=== PATIENT | female | born 1950 | race Caucasian/White ===

== ENCOUNTER 2019-03-01 05:18 | Day surgery (SDC) ==
--- NOTE | 2019-02-22 09:36 | EKG Report ---
Test Performed on : 02/22/2019 08:50:29 AM Test Reason : pat Blood Pressure : / mmHG Vent. Rate : 060 BPM Atrial Rate : 060 BPM P-R Int : 158 ms QRS Dur : 104 ms QT Int : 462 ms P-R-T Axes : 064 015 061 degrees QTc Int : 462 ms Normal sinus rhythm. Normal ECG No previous ECGs available Confirmed by Agustin Palma MD ([id number]) on 02/23/2019 6:23:30 PM
[2019-02-22 10:05] LABS: BASO# 0.04 X1000 (0.0-0.2); BASO% 0.9 % (0.0-0.8); EOS# 0.28 X1000 (0.0-0.7); EOS% 6.5 % (0.0-10.0); HEMATOCRIT 38.6 % (37.0-47.0); HEMOGLOBIN 13.1 g/dL (12.0-16.0); LYMPH# 1.68 X1000 (1.2-3.4); MCH 30.3 PG (27-31); MCHC 33.9 g/dL (33-37); MCV 89.4 FL (81-99); MONO# 0.65 X1000 (0.11-0.59); MONO% 15.1 % (1.7-9.3); MPV 10.7 FL (7.4-10.4); NEUT# 1.66 X1000 (1.4-6.5); NEUT% 38.5 % (42.2-75.2); PLT 335 X1000 (130-400); RBC 4.32 XMIL (4.2-5.4); WBC 4.31 X1000 (4.8-10.8)
[2019-02-22 10:45] LABS: AGAP 10; BUN 14 mg/dL (8-22); CALCIUM 9.4 mg/dL (8.8-10.2); CHLORIDE 103 mmol/L (98-107); COSMO 281; CREATININE 0.7 mg/dL (0.5-0.9); ESTIMATED GFR > 60; GLUCOSE 84 mg/dL (70-104); POTASSIUM 4.1 mmol/L (3.5-5.1); SODIUM 141 mmol/L (136-145); TCO2 28 mmol/L (25-35)
--- NOTE | 2019-02-28 12:31 | HISTORY AND PHYSICAL ---
HISTORY: The patient is a 68-year-old female who has recently moved to the area who has been having increasing problems with symptomatic pelvic organ prolapse. Her prolapse is so significant that it is approximately 4 cm extra corporeal, and she is now not having any incontinence because of the reversed kinking of the urethra. She is having urinary frequency and urgency. She is not having to digitate at this point, and she is not sexually active because of her 's inability. She is very young-appearing and very active, and is not wanting to proceed with pessary management or with an obliterative procedure. She is strongly desiring to proceed with sacral colpopexy and mid urethral sling. The risks and benefits of this were explained at length. She understands, and is wishing to proceed. PAST MEDICAL HISTORY: Positive for bipolar disorder. PAST SURGICAL HISTORY: Positive for vaginal hysterectomy, open appendectomy, right shoulder surgery, and dental implants. She is noted to be a para 3-0-0-3 with 2 vaginal deliveries and 1 forceps delivery. CURRENT MEDICATIONS: 1. Lamictal 200. 2. Cymbalta 30. 3. Alprazolam 1 mg. ALLERGIES: None. FAMILY HISTORY: Noncontributory. SOCIAL HISTORY: Positive for tobacco but stopped 30 years ago. However, she was smoking 1 pack per day. REVIEW OF SYSTEMS: Negative except as noted above. PHYSICAL EXAMINATION: GENERAL: BMI is 20. HEENT: Normocephalic, atraumatic. PERRLA. EOMI. No thyromegaly. CV: Regular rate and rhythm without murmur, gallop, or rub. PULMONARY: Clear. ABDOMEN: Soft. No hepatosplenomegaly. : Pop Q stage IV prolapse with primarily anterior and apical defects. The leading edge is AB, + 5, +6. AA is 0. GH is 5. PB is 4. She has bilateral apical sidewall detachment noted as well. NEUROLOGIC: Afocal. EXTREMITIES: Without clubbing, cyanosis, or edema. ASSESSMENT AND PLAN: Patient with advanced stage prolapse and probable occult incontinence. She has reversed kinking of the urethra that is allowing her to remain continent at this time, but is having the urgency issues. She was counseled at length regarding surgical intervention as well as pessary management. She is wishing to proceed with surgical intervention that has the best long- term cure rate. She is admitted at this time for robotic abdominal sacrocolpopexy with midurethral sling using Obtryx. cc: Kenny Chapin MD
[2019-03-01] MEDS ORDERED: KEFZOL 1 GM/D5W 1 GM/50 ML IVPB ONE (05:33)
[2019-03-01] MEDS ORDERED: LR 1,000 ML ONE ×3 (05:33→10:28)
[2019-03-01] MEDS ORDERED: SENSORCAINE 0.25%/EPI 1:200,000 ONE (06:28)
[2019-03-01] MEDS ORDERED: D10W 1,000 ML ONE (06:28)
[2019-03-01] MEDS ORDERED: XYLOCAINE-MPF 2% ONE (06:32)
[2019-03-01] MEDS ORDERED: QUELICIN (DOSE) ONE (06:32)
[2019-03-01] MEDS ORDERED: DIPRIVAN 1% ONE (06:33)
[2019-03-01] MEDS ORDERED: NORCURON ONE (06:34)
[2019-03-01] MEDS ORDERED: STERILE WATER INJ. ONE (06:34)
--- NOTE | 2019-03-01 06:50 | H&P REVIEW ---
H&P Update H&P Review: H&P was reviewed and patient was examined, No change has occurred in the patient's condition
[2019-03-01] MEDS ORDERED: FENTANYL ONE (07:08)
[2019-03-01] MEDS ORDERED: ZOFRAN ONE (07:35)
[2019-03-01] MEDS ORDERED: DECADRON ONE (07:35)
[2019-03-01] MEDS ORDERED: TORADOL ONE (07:35)
[2019-03-01 08:41] LABS: URINE SOURCE CATH
[2019-03-01 08:48] LABS: BILIRUBIN URINE NEGATIVE (NEGATIVE); BLOOD URINE NEGATIVE (NEGATIVE); COLOR YELLOW; GLUCOSE URINE NEGATIVE (NEGATIVE); KETONE URINE NEGATIVE (NEGATIVE); LEUKOCYTES URINE NEGATIVE (NEGATIVE); NITRITE URINE NEGATIVE (NEGATIVE); PROTEIN URINE NEGATIVE (NEGATIVE); TURBIDITY URINE CLEAR (CLEAR); UROBILINOGEN URINE NORMAL (NORMAL)
[2019-03-01 08:49] LABS: UR EPITHELIAL CELLS <10 /HPF (<10); URINE BACTERIA NEGATIVE /HPF; URINE RBC <10 /HPF (<10); URINE WBC <10 /HPF (<10)
[2019-03-01] MEDS ORDERED: ROBINUL ONE (09:07)
[2019-03-01] MEDS ORDERED: LASIX ONE (09:07)
[2019-03-01] MEDS ORDERED: NEOSTIGMINE ONE (09:08)
[2019-03-01] MEDS ORDERED: SODIUM CHLORIDE 0.9% ONE (09:30)
[2019-03-01] MEDS ORDERED: METROGEL-VAGINAL 0.75% GEL ONE (09:32)
[2019-03-01] MEDS: ZOFRAN ONE ×2 (10:49→20:07)
[2019-03-01] MEDS: PHENERGAN ONE ×2 (11:07→20:07)
[2019-03-01] MEDS ORDERED: NORCO-5 PO PRN (11:31)
[2019-03-01] MEDS ORDERED: DEMEROL IM PRN (11:31)
[2019-03-01] MEDS ORDERED: PHENERGAN IM PRN (11:31)
[2019-03-01] MEDS ORDERED: XANAX PO PRN (11:31)
[2019-03-01] MEDS: COLACE PO SCH ×2 (12:36→23:02)
[2019-03-01] MEDS: LAMICTAL PO SCH ×2 (12:37→23:02)
[2019-03-01] MEDS: PERIDEX MT SCH ×2 (12:37→23:02)
--- NOTE | 2019-03-01 14:20 | OPERATIVE NOTE ---
PROCEDURE DATE: 03/01/2019 PREOPERATIVE DIAGNOSIS: POP-Q stage IV prolapse. POSTOPERATIVE DIAGNOSIS: Same, pelvic adhesive disease, right ovarian mass. PROCEDURE: Da Kimi abdominal sacrocolpopexy with lysis of adhesions, right salpingo- oophorectomy, mid urethral sling with Obtryx, distal posterior compartment defect repair. SURGEON: Dr. Kenny Chapin. ANESTHESIA: General. ESTIMATED BLOOD LOSS: 50 mL. HISTORY: The patient is a 68-year-old female who has been having increasing problems with symptomatic pelvic organ prolapse and in our office was found to have POP-Q stage IV prolapse based on total vaginal length with point BA being the leading edge at +4. FINDINGS: Patient was found to have moderate adhesions from her prior appendectomy in the right lower quadrant prohibiting placement of all ports. She was found to have a right ovarian cyst. She was found to have moderate adhesions across the apex of the vagina, where the right and left adnexa were brought together in the midline and secured to the vaginal apex. OPERATIVE PROCEDURE: Patient is taken operating room placed in the supine position. After adequate general anesthesia obtained she was placed in the [facility] and her abdomen and vagina was prepped and draped in the usual fashion. Umbilical incision was made after infiltration of 0.25% Marcaine with epinephrine. A 12 mm port and sheath were placed through this incision into the abdominal cavity. Pelvic contents were visualized. Therefore, insufflation with CO2 to an intra-abdominal pressure of 14 was performed. The left-sided ports were easily placed under direct visualization and after infiltration with the same local anesthetic. At this time, when we went to place the right-sided ports it was obvious that our prior appendectomy site was going to prohibit this. Therefore, we stopped at this point and began performing lysis of adhesions. We spent approximately 15 minutes using sharp scissors with cautery to perform lysis of adhesions from the left-sided ports correcting the right lower quadrant adhesive disease. After completion of this, we then infiltrated both sites on the right-hand side and placed the right-sided robotic port and the assistance port on the right side in the usual fashion under direct visualization. The patient was placed in deep Trendelenburg position. Yañez catheter was placed and EEA sizers were placed within the vagina and the rectum at this point. The robot was docked in the usual fashion with hot scissors in the right hand, bipolar PK in left-hand and Cardiere grasper in the third arm. At this time, we were then able to visualize the vaginal apex. However, interestingly, she had both fallopian tubes brought across the midline so that the ovaries were almost kissing in this area and appeared to be secured to the vaginal apex with peritoneum as well almost as if this was some type of suspensory type of procedure performed at the time of her hysterectomy. We avoided this area initially and found our vesicovaginal fold and began our dissection just anterior to this excessive tissue accumulation in the midline. We performed our dissection of the vesicovaginal space and we had approximately 12 cm dissected anteriorly with at least 4 cm of width. Her right side showed better securing in terms of fascia. However, her left side was totally gone from the left side wall. We then turned our attention towards the posterior compartment and again dissected approximately 12 to 14 cm down to the perineal body in the posterior compartment. We then turned our attention towards the apex. We used the third arm to deviate the colon laterally. We lifted the peritoneum up the sacral promontory and easily opened this space up sharply. We cauterized our presacral vessels are presacral veins, both on the right and the left-hand side. We created our tunnel in typical fashion, paying attention to the ureter on the right side and the sigmoid colon distally. After doing this, we trimmed our mesh. We had 10 to 12 cm anteriorly and approximately the same 10 to 12 cm arm in the posterior compartment. We trimmed the third arm somewhat shorter to have less mesh to work with intraperitoneal. The mesh was introduced in the abdomen. The equipment was changed out to 2 needle drivers and starting in the anterior compartment distally we used a 2- 0 [place]-Tray suture to place approximately 12 sutures anteriorly. All sutures were thrown with an initial surgeon's throw and 4 half throws after this. We got up to this most superior portion. We actually came across this area, leaving much of it intact but removing some of the fallopian tube involvement in this area so as to not have any pain with intercourse. Upon removing this area, then we could bring the posterior arm around the posterior side. We secured it in a similar fashion, placing approximately 10 sutures in the posterior compartment again with the same knot arrangement. We did have to use a 30 degree up scope as we got distally near the perineal body to be able to visualize our suture placement. Upon doing this, the third arm was brought up to the promontory. We placed 3 sutures through this third arm through the anterior longitudinal ligament without any difficulty. We were well away from the ureter and the left common iliac vein. At this time, we trimmed off the excessive mesh at the third arm and then reperitonealized using a V- Loc suture without any difficulty. No other abnormalities were noted. We then made our decision to remove the right ovary. This was easily done with the PK device well above the ureter. We dropped it into an endosac at this point. We then removed our robot and we removed the endosac and the ovary without any spill through the assistance port that had been placed. Upon doing this, we then used a [place]-Thomasen to introduce back into this assistance port site and 0 Vicryl ligature to close the fascia and peritoneum in this space. We used a [place]-Thomasen to also close our 12 mm midline port through the fascia and peritoneum as well. All other ports were removed under direct visualization the laparoscoped and the abdomen was deflated of CO2. Nursing services closed all 5 skin incisions with a subcuticular 4.0 Vicryl ligature and surgical glue. Vaginally we had excellent repair in the anterior and posterior compartment. However, I was concerned about the genital hiatus still being enlarged at approximately 8-10 cm. So, decision was made to perform a distal posterior compartment defect repair similar to a light similar to a almost perineorrhaphy. However, we stayed away from the perineal tissue and did all of our work intravaginally. We injected this area with approximately 30 mL of 0.25% Marcaine with epinephrine diluted 50% with normal saline. We made a sagittal incision and dissected laterally towards the levators that were distal. We then used interrupted 0 Vicryl ligature to plicate these distal areas to close off some of the genital hiatus all the way down to the perineal body and attaching the perineal body to our vaginal mucosa. We trimmed approximately 1 to 2 cm of vaginal tissue away from this incision and then closed this incision with a running 2.0 times are running 2.0 Vicryl ligature. We turned our attention towards placement of the sling. The urethra was grasped proximally and distally with Allis clamps. We injected another 8 to 10 mL of 0.25% Marcaine with epinephrine. We made a sagittal incision and sharply dissected up towards the ischial pubic ramus on the each side. Based on the bony landmarks of the ramus and the insertion of the adductor longus a stab incision was initially made on the left-hand side. A Halo device was introduced through this incision to the submarine operator's finger, which directed it out. There was no penetration in the sulcus. The mesh was attached to the needle. It was retracted back through the skin. This was performed on the contralateral side in a similar fashion. At this time, we then introduced a cystoscope and filled the bladder with D10 to approximately 300 mL. Both ureters were effluxing urine. There was no evidence of any abnormality within the bladder. There was no evidence of any mesh. Cystoscope was removed and a Patricia clamp was placed in the mid urethral position. The tape was brought up the Patricia clamp. Blue tag was excised, and the sheaths were easily removed. There was no tension on the mesh whatsoever and the patient had a puff of urine consistent with appropriate positioning when instrument was placed in the urethra. The mid urethral incision was closed with a running 2.0 Vicryl ligature. Rectal examination was performed. There was no penetration whatsoever and no banding in the rectum. There was no abnormalities in the vagina except for 1 [place]-Tray suture that had gone through the vaginal mucosa. This was easily excised with Metzenbaum scissors and retracted back into the tissue. She had excellent support in all compartments. Because the distal posterior defect repair decision was made to place a vaginal pack, which was easily done and Yañez catheters were placed. Sponge count, instrument count, needle counts correct x3. Packs and drains were Yañez and vaginal pack. The patient was taken out of the low adjustable stirrups she was awakened, taken to the recovery room with vital signs stable. cc: Kenny Chapin MD
[2019-03-01] MEDS: CYMBALTA PO SCH (16:06)
[2019-03-01] MEDS: TORADOL IV SCH ×2 (16:12→23:02)
--- NOTE | 2019-03-01 17:38 | PROGRESS NOTE ---
DATE: 03/01/2019 TIME: Approximately 5:15 p.m. SUBJECTIVE: Patient is alert and oriented x2. She is lying in bed. Nursing services is in the room with her and has just provided her with some Phenergan because she was feeling nauseated. OBJECTIVE: Afebrile. Vital signs stable. Urine output is good. She has good oxygen saturation on room air. ASSESSMENT AND PLAN: I have told the patient I would remove the vaginal pack from her now to help with her discomfort and nausea. We will plan on a voiding trial in the morning and plan on discharge after completion of the voiding trial. cc: Kenny Chapin MD
[2019-03-01] MEDS: LR 1,000 ML IV SCH ×2 (18:36→20:07)
[2019-03-02] MEDS: LR 1,000 ML IV SCH (03:16)
[2019-03-02] MEDS: TORADOL IV SCH ×2 (03:16→08:31)
--- NOTE | 2019-03-02 07:14 | DISCHARGE SUMMARY ---
ADMISSION DATE: 03/01/2019 DISCHARGE DATE: 03/02/2019 PRINCIPAL DIAGNOSIS: Pelvic organ prolapse. OTHER DIAGNOSES: 1. Stress incontinence. 2. Right ovarian cyst. PROCEDURE: Da Kimi abdominal sacrocolpopexy, right salpingo-oophorectomy, posterior compartment defect repair, mid urethral sling with Obtryx. HISTORY: The patient is a 68-year-old female with worsening symptomatic pelvic organ prolapse, who was admitted for surgical intervention. HOSPITAL COURSE: The patient underwent the above-stated procedures. Blood loss at that time was approximately 50 mL. Postoperative course has been uncomplicated. She is currently undergoing a voiding trial and will be discharged home with instructions for followup in 2 weeks. DISCHARGE MEDICATIONS: [place] and [place]. DISCHARGE INSTRUCTIONS: She was instructed in a regular diet and decreased activity. cc: Kenny Chapin MD
[2019-03-02 07:58] VITALS: BP 101/49
[2019-03-02] MEDS: COLACE PO SCH (08:31)
[2019-03-02] MEDS: PERIDEX MT SCH (08:31)
[2019-03-02] MEDS: CYMBALTA PO SCH (08:31)
[2019-03-02] MEDS: LAMICTAL PO SCH (08:31)
== END 2019-03-02 13:25 | disposition home or self-care (01) ==
LOC: PAT 05:18 → OPS 05:18 → INTOOBSV 10:42 → DIRADM 10:42 → 4N 11:14 → OPS 03-02 13:25
PROVIDERS: ATTEND Obstetrics & Gynecology
CPT/HCPCS: 80048; 81001; 85025; 88305; 93005; 93010; 94761; 94799; A9270; C1771; C1781; J0330; J0690; J1100; J1885; J1940; J2405; J2550; J3010; J7120; S2900